=== PATIENT | male | born 1970 | race Caucasian/White ===

== ENCOUNTER 2023-09-11 08:15 | Emergency (ER) | payer BC ==
--- OUTSIDE RECORDS SUMMARY | 2023-09-11 08:18 | XMS REPORT | Continuity of Care Document ---
Author Name Unknown Address [address] [facility] [address] thconnect Address [address] [facility] [address] [place] [address] Care Team Providers Care Management Internship Name Role Phone VIRI GAUTAM Attending Clinician Unavailable DAVID RAHMAN Attending Clinician Unavailab almaraz LAB90 Attending Clinician Unavailable YINKA CASTAÑEDA Attending Clinician Unaloyd ilable Payers Payer Name Policy Type Policy Number Effective Date Expirati on Date Source BCBS 2 [id number] 2022 00:00:00 Problems Condition Name Condition Details Condition Category Status Onset Date Resolution Date Last Treatment Date Treating Clinician Comments Source Type 2 diabetes mellitus without complicati on, without long-term current use of insulin (multi HCC) Type 2 diabetes mellitus without complicati on, without long-term current use of insulin (multi HCC) Disease Active 02-24 00:00: 00 Ольга Melissa - Externa l Primary hypertensi on Primary hypertensi on Disease Active 02-20 00:00: 00 Ольга Melissa - Externa l Social History Social Habit Start Date Stop Date Quantity Comments Source History SDOH Alcohol Std Drinks Ольга Teran ybold - External History SDOH Alcohol Binge Ольга Melissa - External History SDOH Alcohol Frequency Ольга Andrews bold - External Gender identity Rowan simpson Seybold - External Sexual orientation K elsey Seybold - External Alcoholic beverage intake 2023-06-17 00:00:00 2023-06-17 00:00:00 .14 /d Ольга Melissa - External Alcohol intake 2022-12-17 00:00:00 2022-12-17 00:00:00 Current drinker of alcohol (finding) Ольга Melissa - Louie History of Social function 2022-11-04 00:00:00 2022-11-04 00:00:00 Ольга Melissa - External Alcohol Comment 2022-02-20 00:00:00 2022-02-20 00:00:00 social Ольга Palma Sex assigned at 1970 00:00:00 1970 00:00:00 Оьлга Melissa - External Smoking Status Start Date Stop Date Source Never smoked tobacco Ольга Melissa - External Medications Ordered Medication Name Filled Medication Name Start Date Stop Date Current Medication? Ordering Clinician Indication Dosage Frequency Signature (SIG) Comments Components Source Semaglutide , 2 MG/DOSE, (Ozempic, 2 MG/DOSE,) subcutaneou s 06-16 00:00: 00 Yes [id number] 2mg Inject 2 mg into the skin once a week. Ольга frazier hydroCHLORO thiazide 12.5 MG oral Tablet 06-04 00:00: 00 Yes 12.5mg Take 1 tablet (12.5 mg total) by mouth daily. Ольга frazier OZEMPIC (1 mg/dose) 4 mg/3 mL SQ Solution Pen-Injecto r 05-31 00:00: 00 06-16 00:00 :00 No [id number] Inject 1mg into the skin once a week for 4 weeks Ольга frazier Metoprolol Succinate 50 MG oral TABLET SR 24 HR 03-09 00:00: 00 Yes 50mg TAKE 1 TABLET BY MOUTH EVERY DAY Ольга frazier Multiple Vitamin (MULTI VITAMIN DAILY OR) 2022-02 07:55: 36 Yes Take by mouth Ольга frazier Losartan Potassium (COZAAR) 100 MG oral Tablet 2022-02 00:00: 00 Yes [id number] 100mg Take 1 tablet (100 mg total) by mouth daily FOR 90 DAYS. Ольга frazier Losartan Potassium (COZAAR) 100 MG oral Tablet 2022-02- 00:00: 00 12-15 00:00 :00 No 100mg Take 1 tablet (100 mg total) by mouth 2 times daily FOR 90 DAYS. Ольга frazier Multiple Vitamin (MULTI VITAMIN DAILY OR) 10-09 13:17: 11 Yes Take by mouth Ольга frazier Multiple Vitamin (MULTI VITAMIN DAILY OR) 09-16 15:38: 47 Yes Take by mouth Ольга frazier OZEMPIC (1 mg/dose) 4 mg/3 mL SQ Solution Pen-Injecto r 09-16 00:00: 00 Yes [id number] 1mg Inject 1 mg into the skin once a week Ольга frazier Probiotic Product (PROBIOTIC- 10 OR) 06-05 08:16: 45 Yes Take by mouth Ольга frazier Losartan Potassium (COZAAR) 50 MG oral Tablet 06-05 00:00: 00 12-15 00:00 :00 No [id number] 50mg Take 1 tablet (50 mg total) by mouth daily FOR 90 DAYS Ольга frazier Semaglutide -Weight Management 1 MG/0.5ML subcutaneou s Solution Auto-inject or 06-05 00:00: 00 09-16 00:00 :00 No [id number] 1mg Inject 1 mg into the skin once a week Ольга frazier hydroCHLORO thiazide 12.5 MG oral Capsule 05-19 00:00: 00 06-05 00:00 :00 No [id number] TAKE 1 CAPSULE BY MOUTH EVERY DAY Ольга frazier Multiple Vitamin (MULTI VITAMIN DAILY OR) 05-08 08:16: 07 Yes Take by mouth Ольга frazier Semaglutide (0.25 or 0.5 mg/dose) 2 mg/1.5 mL SQ Solution Pen-Injecto r 05-08 00:00: 00 06-05 00:00 :00 No [id number] .5mg Inject 0.5 mg into the skin once a week Ольга frazier OZEMPIC (0.25 or 0.5 mg/dose) 2 mg/3 mL SQ Solution Pen-Injecto r 3 00:00: 00 06-05 00:00 :00 No Ольга frazier Multiple Vitamin (MULTI VITAMIN DAILY OR) 04-08 07:54: 19 Yes Take by mouth Ольга frazier Semaglutide (0.25 or 0.5 mg/dose) 2 mg/1.5 mL SQ Solution Pen-Injecto r 04-08 00:00: 00 Yes [id number] .5mg Inject 0.5 mg into the skin once a week Ольга frazier Metoprolol Succinate 50 MG oral TABLET SR 24 HR 03-30 00:00: 00 Yes 50mg Take 1 tablet (50 mg total) by mouth daily Ольга frazier Losartan Potassium (COZAAR) 50 MG oral Tablet 03-30 00:00: 00 06-05 00:00 :00 No 50mg Take 1 tablet (50 mg total) by mouth 2 times daily FOR 90 DAYS Ольга frazier hydroCHLORO thiazide 12.5 MG oral Capsule - 09:40: 37 02-20 00:00 :00 No 12.5mg Take 12.5 mg by mouth daily Ольга frazier Multiple Vitamin (MULTI VITAMIN DAILY OR) 02-20 09:28: 47 Yes Take by mouth Ольга frazier Semaglutide (0.25 or 0.5 mg/dose) 2 mg/1.5 mL SQ Solution Pen-Injecto r - 00:00: 00 Yes [id number] .25mg Inject 0.25 mg into the skin once a week Ольга frazier hydroCHLORO thiazide 12.5 MG oral Capsule -12 00:00: 00 Yes [id number] 12.5mg Take 1 capsule (12.5 mg total) by mouth daily Ольга frazier Losartan Potassium 50 MG oral Tablet 2021-02 2-13 00:00: 00 Yes 50mg Take 50 mg by mouth 2 times daily FOR 90 DAYS Ольга frazier Metoprolol Succinate 50 MG oral TABLET SR 24 HR 2021-02 1- 00:00: 00 Yes 50mg Take 50 mg by mouth daily Ольга Packa freddie Immunizations Ordered Immunization Name Filled Immunization Name Date Status Comments Source Influenza Virus Vaccine, age 6 months and up 2022-02-20 00:00:00 Completed Ольга ybold - External Influenza Virus Vaccine, age 6 months and up 2022-02-20 00:00:00 Completed Ольга ybold - External Influenza Virus Vaccine, age 6 months and up 2022-02-20 00:00:00 Completed Ольга ybold - External Influenza Virus Vaccine, age 6 months and up 2022-02-20 00:00:00 Completed Ольга ybold - External Influenza Virus Vaccine, age 6 months and up 2022-02-20 00:00:00 Completed Ольга ybold - External Influenza Virus Vaccine, age 6 months and up 2022-02-20 00:00:00 Completed Ольга ybold - External Influenza Virus Vaccine, age 6 months and up 2022-02-20 00:00:00 Completed Ольга ybold - External Influenza Virus Vaccine, age 6 months and up Unknown Completed Ольга Seybold - External Influenza Virus Vaccine, age 6 months and up Unknown Completed Ольга Seybold - External Vital Signs Vital Name Observation Time Observation Value Comments S ource Systolic blood pressure 2023-06-17 20:44:00 102 mm[Hg] Ольга Sarabia ld - External Diastolic blood pressure 2023-06-17 20:44:00 64 mm[Hg] Ольга Sarabia ld - External Heart rate 2023-06-17 20:44:00 93 /min Jeff etsrada ybange - External Body temperature 2023-06-17 20:44:00 36.56 Deneen Ольга Belén - External Respiratory rate 2023-06-17 20:44:00 15 /min Ольга bree - External Body height 2023-06-17 20:44:00 167.6 cm Rowan simpson Seybold - External Body weight 2023-06-17 20:44:00 111.131 kg Rowan simpson Seybold - External BMI 2023-06-17 20:44:00 39.54 kg/m2 Rowan ey Seybold - External Systolic blood pressure 2022-12-17 13:53:00 126 mm[Hg] Ольга Seybo ld - External Diastolic blood pressure 2022-12-17 13:53:00 84 mm[Hg] Ольга Seybo ld - External Heart rate 2022-12-17 13:53:00 79 /min Kelse y Seybold - External Body temperature 2022-12-17 13:53:00 36.44 Deneen Ольга Seybold - External Respiratory rate 2022-12-17 13:53:00 15 /min Ольга Seybold - External Body height 2022-12-17 13:53:00 167.6 cm Rowan ey Seybold - External Body weight 2022-12-17 13:53:00 111.131 kg Rowan ey Seybold - External BMI 2022-12-17 13:53:00 39.54 kg/m2 Rowan ey Seybold - External Systolic blood pressure 2022-10-09 18:15:00 123 mm[Hg] Ольга Seybo ld - External Diastolic blood pressure 2022-10-09 18:15:00 58 mm[Hg] Ольга Seybo ld - External Heart rate 2022-10-09 18:15:00 85 /min Kelse y Seybold - External Body temperature 2022-10-09 18:15:00 36.39 Deneen Ольга Seybold - External Respiratory rate 2022-10-09 18:15:00 15 /min Ольга Seybold - External Body height 2022-10-09 18:15:00 167.6 cm Rowan ey Seybold - External Body weight 2022-10-09 18:15:00 112.946 kg Rowan ey Seybold - External BMI 2022-10-09 18:15:00 40.19 kg/m2 Rowan ey Seybold - External Oxygen saturation in Arterial blood by Pulse oximetry 2022-10-09 18:15:00 99 /min Ольга Seybo ld - External Systolic blood pressure 2022-09-16 20:36:00 124 mm[Hg] Ольга Seybo ld - External Diastolic blood pressure 2022-09-16 20:36:00 76 mm[Hg] Ольга Seybo ld - External Heart rate 2022-09-16 20:36:00 81 /min Kelse y Seybold - External Body temperature 2022-09-16 20:36:00 36.5 Deneen Ольга Seybold - External Respiratory rate 2022-09-16 20:36:00 16 /min Ольга Seybold - External Body height 2022-09-16 20:36:00 167.6 cm Rowan ey Seybold - External Body weight 2022-09-16 20:36:00 109.77 kg Rowan ey Seybold - External BMI 2022-09-16 20:36:00 39.06 kg/m2 Rowan ey Seybold - External Oxygen saturation in Arterial blood by Pulse oximetry 2022-09-16 20:36:00 96 /min Ольга Seybo ld - External Systolic blood pressure 2022-06-05 13:14:00 120 mm[Hg] Ольга Seybo ld - External Diastolic blood pressure 2022-06-05 13:14:00 84 mm[Hg] Ольга Seybo ld - External Heart rate 2022-06-05 13:14:00 75 /min Laytonse y Seybold - External Body temperature 2022-06-05 13:14:00 36.78 Deneen Ольга Seybold - External Respiratory rate 2022-06-05 13:14:00 15 /min Ольга Seybold - External Body height 2022-06-05 13:14:00 167.6 cm Rowan ey Seybold - External Body weight 2022-06-05 13:14:00 115.667 kg Rowan ey Seybold - External BMI 2022-06-05 13:14:00 41.16 kg/m2 Rowan ey Seybold - External Systolic blood pressure 2022-05-08 13:12:00 132 mm[Hg] Ольга Seybo ld - External Diastolic blood pressure 2022-05-08 13:12:00 86 mm[Hg] Ольга Seybo ld - External Heart rate 2022-05-08 13:12:00 97 /min Kelse y Seybold - External Body temperature 2022-05-08 13:12:00 36.11 Deneen Ольга Seybold - External Respiratory rate 2022-05-08 13:12:00 15 /min Ольга Seybold - External Body height 2022-05-08 13:12:00 167.6 cm Rowan ey Seybold - External Body weight 2022-05-08 13:12:00 117.028 kg Rowan ey Seybold - External BMI 2022-05-08 13:12:00 41.64 kg/m2 Rowan ey Seybold - External Systolic blood pressure 2022-04-08 13:52:00 120 mm[Hg] Ольга Seybo ld - External Diastolic blood pressure 2022-04-08 13:52:00 68 mm[Hg] Ольга Seybo ld - External Heart rate 2022-04-08 13:52:00 80 /min Kelse y Seybold - External Body temperature 2022-04-08 13:52:00 36.89 Deneen Ольга Seybold - External Respiratory rate 2022-04-08 13:52:00 15 /min Ольга Seybold - External Body height 2022-04-08 13:52:00 167.6 cm Rowan ey Seybold - External Body weight 2022-04-08 13:52:00 119.75 kg Rowan ey Seybold - External BMI 2022-04-08 13:52:00 42.61 kg/m2 Rowan ey Seybold - External Systolic blood pressure 2022-02-20 15:25:00 122 mm[Hg] Ольга Seybo ld - External Diastolic blood pressure 2022-02-20 15:25:00 70 mm[Hg] Ольга Seybo ld - External Heart rate 2022-02-20 15:25:00 71 /min Kelse y Seybold - External Body temperature 2022-02-20 15:25:00 36.78 Deneen Ольга Seybold - External Respiratory rate 2022-02-20 15:25:00 16 /min Ольга Seybold - External Body height 2022-02-20 15:25:00 167.6 cm Rowan ey Seybold - External Body weight 2022-02-20 15:25:00 127.007 kg Rowan ey Seybold - External BMI 2022-02-20 15:25:00 45.19 kg/m2 Rowan ey Seybold - External Encounters Start Date/Time End Date/Time Encounter Type Admission Type Attending [facility] Care Department Encounter ID Source 2023-12-18 08:00:00 2023-12-18 08:00:00 Outpatient ABIELFreddie VIRI ОЛЬГА VILLAREAL [id number] Ольга Melissa 2023-09-24 15:30:00 2023-09-24 15:30:00 Outpatient DAVID RAHMAN [id number] Ольга [facility] 2023-06-29 08:20:00 2023-06-29 08:20:00 Outpatient AARON ОЛЬГА VILLAREAL [id number] [facility] 2023-06-17 15:30:00 2023-06-17 15:30:00 Outpatient ABIELFreddie VIRI VILLAREAL [id number] Оль[facility]а [facility] 2023-06-01 00:00:00 2023-06-01 00:00:00 Outpatient ABIELFreddie VIRI VILLAREAL [id number] О[facility]а [facility] 2023-03-31 00:00:00 2023-03-31 00:00:00 Outpatient ABIELFreddie VIRI VILLAREAL [id number] [facility] 2023-03-08 00:00:00 2023-03-08 00:00:00 Outpatient ABIELFreddie VIRI VILLAREAL [id number] Ольга [facility] 2022-12-20 00:00:00 2022-12-20 00:00:00 Outpatient ABIELFreddie VIRI VILLAREAL [id number] [facility] 2022-12-17 08:00:00 2022-12-17 08:00:00 Outpatient ABIELFreddie VIRI VILLAREAL [id number] [facility] 2022-12-15 00:00:00 2022-12-15 00:00:00 Outpatient DAIN VIRI VILLAREAL [id number] Ольга [facility] 2022-12-12 00:00:00 2022-12-12 00:00:00 Outpatient VIRI GAUTAM [id number] [facility] 2022-11-04 08:00:00 2022-11-04 08:00:00 Outpatient DAVID RAHMAN [id number] Ольга [facility] 2022-10-09 13:30:00 2022-10-09 13:30:00 Outpatient DAVID RAHMAN ОЛЬГА VILLAREAL [id number] Ольга [facility] 2022-10-09 11:00:00 2022-10-09 11:00:00 Outpatient DAVID RAHMAN ОЛЬГА VILLAREAL [id number] Ольга [facility] 2022-09-16 15:30:00 2022-09-16 15:30:00 Outpatient HUNDL, VIRI VILLAREAL [id number] Ольга Seybange 2022-09-04 08:30:00 2022-09-04 08:30:00 Outpatient HUNDL, VIRI VILLAREAL [id number] [facility] 2022-06-05 09:15:00 2022-06-05 09:15:00 Outpatient RICOSánchez ОЛЬГА VILLAREAL [id number] Ольга Seybold 2022-06-05 08:30:00 2022-06-05 08:30:00 Outpatient HUNDL, VIRI VILLAREAL [id number] [facility] 2022-05-28 00:00:00 2022-05-28 00:00:00 Outpatient HUNDL, VIRI VILLAREAL [id number] [facility] 2022-05-17 00:00:00 2022-05-17 00:00:00 Outpatient HUNDL, VIRI VILLAREAL [id number] Ольга Seybold 2022-05-08 08:30:00 2022-05-08 08:30:00 Outpatient HUNDL, VIRI VILLAREAL [id number] Ольга Seybold 2022-05-06 08:00:00 2022-05-06 08:00:00 Outpatient HUNDL, VIRI VILLAREAL [id number] Ольга Seybold 2022-04-08 08:00:00 2022-04-08 08:00:00 Outpatient HUNDL, VIRI VILLAREAL [id number] Ольга Seybold 2022-03-28 00:00:00 2022-03-28 00:00:00 Outpatient HUNDL, VIRI VILLAREAL [id number] Ольга Seybold 2022-03-20 09:30:00 2022-03-20 09:30:00 Outpatient VIRI GAUTAM ОЛЬГА [id number] Ольга [facility] 2022-02-24 10:15:00 2022-02-24 10:15:00 Outpatient YINKA CASTAÑEDA ОЛЬГА [id number] Ольга Melissa 2022-02-24 00:00:00 2022-02-24 00:00:00 Outpatient VIRI GAUTAM ОЛЬГА [id number] Ольга [facility] 2022-02-20 10:15:00 2022-02-20 10:15:00 Outpatient LAB90 ОЛЬГА ОЛЬГА [id number] [facility] 2022-02-20 09:30:00 2022-02-20 09:30:00 Outpatient VIRI GAUTAM ОЛЬГА [id number] Ольга [facility] 2022-02-19 08:15:00 2022-02-19 08:15:00 Outpatient GARRYYINKA ОЛЬГА VILLAREAL [id number] [facility] Notes Date/Time Note Provider Source 2023-06-17 15:47:22 Chief Complaint Patient presents with Diabetes 6 month diabetic follow up Physical Joy Chaudhary MA II [facility] 2022-09-16 15:38:49 Formatting of this n ote might be different from the original. Patient is here for weight loss f/u, no concerns voiced, VSS, medications reconciled. T Patti Yan [facility]
[2023-09-11] MEDS ORDERED: ASPIRIN 81 MG CHEWABLE TABLET ONE (08:35)
[2023-09-11 08:56] LABS: Absolute Eosinophils 0.1 K/uL (0-0.5); Absolute Lymphocytes (CBC) 2.2 K/uL (0.7-4.9); Absolute Monocytes 0.5 K/uL (0.1-1.3); Absolute Neutrophil 3.1 K/uL (1.8-8.0); Basophils % 0.8 % (0-1.3); Eosinophils % 2.4 % (0-4.4); Hemoglobin 15.3 g/dL (13.6-17.9); Lymphocytes % 35.8 % (15.3-44.8); MCH 29.9 pg (27.0-35.0); MCHC 33.3 g/dL (32.0-36.0); MCV 89.8 fL (80-100); MPV 8.7 fL (7.6-11.3); Monocytes % 8.9 % (3.3-12.3); Neutrophils % 52.1 % (41.7-73.7); Nucleated Red Blood Cells % 0.1 % (0-0); Platelets 217 thou/uL (152-406); RBC Red Blood Cell Count 5.12 M/uL (4.33-5.43); Red Cell Distribution Width 13.7 % (12.1-15.2)
--- NOTE | 2023-09-11 09:01 | RAD REPORT ---
EXAM DESCRIPTION: RAD - Chest Single View - 09/11/2023 8:44 am CLINICAL HISTORY: CHEST PAIN Chest pain. COMPARISON: Chest Pa And Lat (2 Views) dated 07/11/2015; CHEST PA AND LAT 2 VIEW dated 08/05/2012; CHES T SINGLE VIEW dated 03/02/2011 FINDINGS: Portable technique limits examination quality. The lungs are grossly clear. The heart is upper limit of normal in size. No displaced fractures. IMPRESSION: No acute intrathoracic process suspected.
[2023-09-11 09:10] LABS: Albumin/Globulin Ratio 1.1 (1.1-1.8); Anion Gap 6.3 mEq/L (5.0-15.0); Bilirubin Total 1.1 mg/dL (0.2-1.0); Globulin 3.8 g/dL (2.3-3.5); Magnesium 2.3 mg/dL (1.6-2.4); Potassium 4.3 mEq/L (3.5-5.1); Protein, Total 7.8 g/dL (6.4-8.2); Troponin High Sensitivity 29.1 pg/mL (<58.9)
--- NOTE | 2023-09-11 09:44 | ER ---
Nurse's Notes [facility] Name: Gino Solares Age: 53 yrs Sex: Male : 1970 Arrival Date: 09/11/2023 Time: 08:15 Bed 4 Private MD: Diagnosis: Chest pain, unspecified Presentation: 09/10 08:25 Chief complaint: Intermittent chest pressure x 1 week. Coronavirus screen: At this hb time, the client does not indicate any symptoms associated with coronavirus-19. Ebola Screen: No symptoms or risks identified at this time. Initial Sepsis Screen: Does the patient meet any 2 criteria? No. Patient's initial sepsis screen is negative. Does the patient have a suspected source of infection? No. Patient's initial sepsis screen is negative. Risk Assessment: Do you want to hurt yourself or someone else? Patient reports no desire to harm self or others. Onset of symptoms was September 05, 2023. 08:25 Method Of Arrival: Ambulatory hb 08:25 Acuity: OLAYINKA 2 hb Triage Assessment: 08:28 General: Appears in no apparent distress. Behavior is calm, cooperative. Pain: Pain hb currently is 1 out of 10 on a pain scale. Neuro: Level of Consciousness is awake, alert, obeys commands, Oriented to person, place, time, situation. Cardiovascular: Reports chest pain, Patient's skin is warm and dry. Respiratory: Respiratory effort is even, unlabored, Respiratory pattern is regular, symmetrical. Historical: - Allergies: 08:28 No Known Allergies; hb - Home Meds: 08:40 metoprolol tartrate 50 mg Oral tablet daily [Active]; losartan 100 mg oral tablet daily iw [Active]; - PMHx: 08:28 Hypertension; hb - Immunization history:: Adult Immunizations. - Infectious Disease History:: Denies. - Social history:: Smoking status: Patient denies any tobacco usage or history of. Screenin:39 [facility] ED Fall Risk Assessment (Adult) History of falling in the last 3 months, iw including since admission No falls in past 3 months (0 pts) Confusion or Disorientation No (0 pts) Intoxicated or Sedated No (0 pts) Impaired Gait No (0 pts) Mobility Assist Device Used No (0 pt) Altered Elimination No (0 pt) Score/Fall Risk Level 0 - 2 = Low Risk Oriented to surroundings, Maintained a safe environment. Abuse screen: Denies threats or abuse. Nutritional screening: No deficits noted. Tuberculosis screening: No symptoms or risk factors identified. Assessment: 08:38 General: Appears in no apparent distress. Behavior is calm, cooperative. Pain: iw Complains of pain in chest Pain does not radiate. Pain currently is 0 out of 10 on a pain scale. Pain began Is intermittent. Neuro: Level of Consciousness is awake, alert, obeys commands, Oriented to person, place, time, situation, Moves all extremities. Full function. Cardiovascular: Patient's skin is warm and dry. Respiratory: Respiratory effort is even, unlabored, Respiratory pattern is regular, symmetrical. GI: Abdomen is non-distended. 09:31 Reassessment: Patient appears in no apparent distress at this time. Patient and/or iw family updated on plan of care and expected duration. Pain level reassessed. Patient is alert, oriented x 3, equal unlabored respirations, skin warm/dry/pink. Vital Signs: 08:25 BP 134 / 106; Pulse 63; Resp 16; Temp 97.8; Pulse Ox 100% on R/A; Weight 106.59 kg; hb Height 5 ft. 6 in. ; Pain 1/10; 09:36 BP 129 / 98; Pulse 64; Pulse Ox 98% on R/A; hb 08:25 Body Mass Index 37.93 (106.59 kg, 167.64 cm) hb 08:25 Pain Scale: Adult hb ED Course: 08:17 Patient arrived in ED. im 08:25 Isela Montiel MD is Attending Physician. sd2 08:28 Triage completed. hb 08:29 Arm band placed on. hb 08:29 EKG done, by ED staff, reviewed by Isela Montiel MD. hb 08:39 Mitra Brown, RN is Primary Nurse. iw 08:39 No provider procedures requiring assistance completed. Initial lab(s) drawn, by ED iw staff, sent to lab. Inserted saline lock: 20 gauge in right antecubital area, using aseptic technique. Blood collected. Flushed with 10 mL NS inserted by CAROLYN Coronel. Patient maintains SpO2 saturation greater than 95% on room air. 08:46 XRAY Chest (1 view) In Process Unspecified. EDMS 08:46 Patient has correct armband on for positive identification. Bed in low position. Call iw light in reach. Side rails up X2. Client placed on continuous cardiac and pulse oximetry monitoring. NIBP monitoring applied. hall monitor on. :49 Provided Education on: follow up instructions . iw 09:49 IV discontinued, intact, bleeding controlled, No redness/swelling at site. Pressure iw dressing applied. Administered Medications: 08:38 Drug: Aspirin PO Chewable Tablet 324 mg PO once; 81 mg tablets x 4 Route: PO; iw 09:12 Follow up: Response: No adverse reaction bp Medication: 08:39 VIS not applicable for this client. iw Outcome: :43 Discharge ordered by MD. garcia :49 Discharged to home ambulatory, with family, iw :49 Condition: good :49 Discharge instructions given to patient, Instructed on discharge instructions, follow up and referral plans. Demonstrated understanding of instructions, follow-up care, :50 Patient left the ED. iw Signatures: Dispatcher [employer] EDMitra Almonte RN RN iw Es Negron, RN Gino Kapadia RN RN bp Dunlop, Stephanie, MD MD sd2 Mendoza, Itzel
--- NOTE | 2023-09-11 09:44 | EDPHYS ---
Physician Documentation [facility] Name: Gino Solares Age: 53 yrs Sex: Male : 1970 Arrival Date: 09/11/2023 Time: 08:15 Bed 4 Private MD: ED Physician Isela Montiel HPI: 09/10 08:30 This 53 yrs old Male presents to ER via Ambulatory with complaints of Chest Pain. sd2 08:30 53 yo M presents with CC of intermittent chest pain for the past 2-3 weeks. None sd2 currently. No associated SOB, n/v or diaphoresis. No recent travel or leg edema. Reports seeing cardiology previously with an echo performed that showed enlarged heart and having an abnormal EKG in the past. Has been unable to get in with his PCP to be evaluated for this. No ASA taken [employer].. Historical: - Allergies: 08:28 No Known Allergies; hb - Home Meds: 08:40 metoprolol tartrate 50 mg Oral tablet daily [Active]; losartan 100 mg oral tablet daily iw [Active]; - PMHx: 08:28 Hypertension; hb - Immunization history:: Adult Immunizations. - Infectious Disease History:: Denies. - Social history:: Smoking status: Patient denies any tobacco usage or history of. ROS: 08:30 Constitutional: Negative for fever, chills, and weight loss, Eyes: Negative for injury, sd2 pain, redness, and discharge, 08:30 Respiratory: Negative for shortness of breath, cough, wheezing. Abdomen/GI: Negative for abdominal pain, nausea, vomiting, diarrhea. MS/Extremity: Negative for injury and deformity, Skin: Negative for injury, rash, and discoloration, Neuro: Negative for headache, numbness and tingling. 08:30 Cardiovascular: Positive for chest pain, Negative for edema, orthopnea, Exam: 08:30 Constitutional: This is a well developed, well nourished patient who is awake, alert, sd2 and in no acute distress. Head/Face: Normocephalic, atraumatic. Eyes: EOMI, normal conjunctiva bilaterally Chest/axilla: Normal chest wall appearance and motion. Nontender with no deformity. Cardiovascular: Regular rate and rhythm with a normal S1 and S2. No gallops, murmurs, or rubs. 2+ distal pulses. Respiratory: Lungs have equal breath sounds bilaterally, clear to auscultation and percussion. No rales, rhonchi or wheezes noted. No increased work of breathing, no retractions or nasal flaring. Abdomen/GI: Soft, non-tender, with normal bowel sounds. No guarding or rebound. No evidence of tenderness throughout. Skin: Warm, dry with normal turgor. Normal color with no rashes, no lesions, and no evidence of cellulitis. MS/ Extremity: Pulses equal, no cyanosis. Neurovascular intact. Full, normal range of motion. Psych: Awake, alert, with orientation to person, place and time. Behavior, mood, and affect are within normal limits. 08:35 ECG was reviewed by the Attending Physician. NSR, rate 66, no STEMI criteria or sd2 significant ST-T wave changes, wandering baseline and artifact present Vital Signs: 08:25 BP 134 / 106; Pulse 63; Resp 16; Temp 97.8; Pulse Ox 100% on R/A; Weight 106.59 kg; hb Height 5 ft. 6 in. ; Pain 1/10; 09:36 BP 129 / 98; Pulse 64; Pulse Ox 98% on R/A; hb 08:25 Body Mass Index 37.93 (106.59 kg, 167.64 cm) hb 08:25 Pain Scale: Adult hb MDM: 08:25 Patient medically screened. sd2 08:30 Differential diagnosis: ACS, PE, dissection, PNA, PTX, anemia, CHF, dehydration, sd2 electrolyte abnormality, anxiety, MSK among others. The patient was given aspirin in the Emergency Department. Data reviewed: vital signs, nurses notes, lab test result(s), EKG, radiologic studies. I considered the following discharge prescriptions or medication management in the emergency department Medications were administered in the Emergency Department. See MAR. Care significantly affected by the following chronic conditions: Hypertension. 09:32 HEART Score: History: Moderately Suspicious (1), ECG: Non specific repolarization sd2 disturbance / LBTB / PM (1), Age: > 45 and < 65 years (1), Risk Factors: 1 or 2 risk factors (1), [Hypertension] Troponin: < or = 1 x Normal Limit (0), Total Score = 4. Counseling: I had a detailed discussion with the patient and/or guardian regarding the historical points, exam findings, and any diagnostic results supporting the discharge/admit diagnosis, lab results, radiology results, the need for outpatient follow up, to return to the emergency department if symptoms worsen or persist or if there are any questions or concerns that arise at home. ED course: Discussed results with patient. Trop neg. EKG with no ischemic changes. CXR with no acute process. Ongoing CP for a few weeks and patient remains chest pain-free at this time. Advised follow up with his bow maker production for further evaluation. Verbalizes understanding of strict return precautions and is comfortable with plan for discharge. . 09/10 08:30 Order name: CBC with Diff; Complete Time: 09:27 sd2 09/10 08:30 Order name: CMP; Complete Time: 09:27 sd2 09/10 08:30 Order name: Magnesium; Complete Time: 09:27 sd2 09/10 08:30 Order name: Troponin High Sensitivity; Complete Time: 09:27 sd2 09/10 08:30 Order name: BNP; Complete Time: 09:27 sd2 09/10 08:30 Order name: XRAY Chest (1 view); Complete Time: 09:27 sd2 09/10 08:30 Order name: EKG - Nurse/Tech; Complete Time: 08:46 sd2 Administered Medications: 08:38 Drug: Aspirin PO Chewable Tablet 324 mg PO once; 81 mg tablets x 4 Route: PO; iw 09:12 Follow up: Response: No adverse reaction bp Disposition Summary: 09/11/23 09:43 Discharge Ordered Problem: new sd2 Symptoms: have improved sd2 Condition: Stable sd2 Diagnosis - Chest pain, unspecified sd2 Followup: sd2 - With: Private Physician - When: 2 - 3 days - Reason: Recheck today's complaints, Continuance of care, Re-evaluation by your physician Discharge Instructions: - Discharge Summary Sheet sd2 - Nonspecific Chest Pain, Adult sd2 Forms: - Medication Reconciliation Form sd2 - Antibiotic Education sd2 - Prescription Opioid Use sd2 - Patient Portal Instructions sd2 - Leadership Thank You Letter sd2 Signatures: Dispatcher [employer] Mitra Card RN RN iw Es Negron RN RN hb Dunlop, Stephanie, MD MD sd2 Gino Gaytan RN bp Corrections: (The following items were deleted from the chart) 08:31 08:31 Chest Single View+[email or web address] ordered. EDMS EDMS 08:36 08:35 ECG was reviewed by the Attending Physician. NSR, rate 66, no STEMI criteria or sd2 significant ST-T wave changes sd2
[2023-09-11 11:10] VITALS: TEMP 97.8
[2023-09-11 11:12] VITALS: BP 129/98; O2SAT 98
--- NOTE | 2023-09-14 17:10 | EKG ---
Test Date: 2023-09-11 Test Time: 08:32:16 Urban Sociologist: CARINE MEASUREMENT RESULTS: Intervals: Rate: 66 VA: 148 QRSD: 82 QT: 386 QTc: 404 [place]: P: 15 VA: 148 QRS: -3 T: -1 INTERPRETIVE STATEMENTS: Normal sinus rhythm Cannot rule out Anterior infarct, age undetermined Abnormal ECG Compared to ECG 09/23/2021 12:56:47 No significant changes Electronically Signed On 09-14-23 17:00:03 CDT by Pantera Dobbs
== END 2023-09-11 09:50 | disposition home or self-care (01) ==
LOC: ER 08:15
DX: R07.9 Chest pain, unspecified (principal); I10 Essential (primary) hypertension
CPT/HCPCS: 36415; 71045; 80053; 83735; 83880; 84484; 85025; 93005; 99284